=== PATIENT | female | born 1985 | race Caucasian/White ===

== ENCOUNTER 2017-08-17 14:02 | Emergency (ER) | payer MEDICAID ==
[~2017-08-17] VITALS: Ht 165.1 cm; Wt 87.3 kg
[~2017-08-17 14:02] MED LIST: CEPH-571 PO; CLIN150C8 PO; CLINDAMYCIN PO; DIPH25CA83 PO; HYDR-3965 PO; HYDR-569 PO; MUPI1OIN8 BOTHNARES; MUPI22OI TP
[2017-08-17 14:21] VITALS: BP 124/75
[2017-08-17] MEDS ORDERED: CLIN300C70 PO (14:35)
[2017-08-17] MEDS ORDERED: IBUP-1986 PO (14:35)
[2017-08-17] MEDS ORDERED: ANBESOL TP (14:35)
== END 2017-08-17 14:44 | disposition home or self-care (01) ==
LOC: ER 14:03
DX: K02.9 Dental caries, unspecified (principal); G89.29 Other chronic pain; F17.200 Nicotine dependence, unspecified, uncomplicated; Z86.14 Personal history of Methicillin resistant Staphylococcus aureus infection; Z88.0 Allergy status to penicillin; Z88.5 Allergy status to narcotic agent; Z79.899 Other long term (current) drug therapy
CPT/HCPCS: 99283

== ENCOUNTER 2018-06-10 12:18 | Emergency (ER) | payer MEDICAID ==
[~2018-06-10] VITALS: Ht 165.1 cm; Wt 94.0 kg
[~2018-06-10 12:18] MED LIST changes: +HYDR-4383 PO; -HYDR-569 PO; +IBUP-1986 PO
--- NOTE | 2018-06-10 12:44 | NUR ---
RIGHT FOREHEAD ABSCESS NO DRAINAGE NOTED
[2018-06-10] MEDS ORDERED: LORazepam 2 mg/ml vial IM ONE (12:45)
[2018-06-10] MEDS ORDERED: LIDOcaine 1% w/epiNEPHrine 1:200,000 30ml vial IM ONE (12:45)
[2018-06-10] MEDS ORDERED: SULF1TAB49 PO (12:54)
[2018-06-10 13:56] VITALS: BP 132/90
[2018-06-11] MEDS ORDERED: CLIN150C2 PO (17:35)
[2018-06-11] MEDS ORDERED: DIPH25CA83 PO (17:35)
[2018-06-11] MEDS ORDERED: IBUP-1984 PO (17:36)
== END 2018-06-10 13:57 | disposition home or self-care (01) ==
LOC: ER 12:19
DX: L72.3 Sebaceous cyst (principal); G89.29 Other chronic pain; Z86.14 Personal history of Methicillin resistant Staphylococcus aureus infection; Z88.0 Allergy status to penicillin; Z88.5 Allergy status to narcotic agent; Z79.899 Other long term (current) drug therapy
CPT/HCPCS: 10060; 87070; 96372; 99283; J2060; J3490; 87077; 87186

== ENCOUNTER 2018-07-01 20:54 | Emergency (ER) | payer MEDICAID ==
[~2018-07-01] VITALS: Ht 165.1 cm; Wt 90.9 kg
--- NOTE | 2018-07-01 21:09 | NUR ---
dr. egan was notified about patient's SVT status. awaiting orders
[2018-07-01 21:15] LABS: BASOPHILS # (AUTO) 0.1 X10'3 (0-0.2); BASOPHILS % (AUTO) 1.4 % (0-1); EOSINOPHILS # (AUTO) 0.3 X10'3 (0-0.9); EOSINOPHILS % (AUTO) 2.6 % (0-6); HEMATOCRIT 42.7 % (35.0-45.0); HEMOGLOBIN 14.4 g/dl (12.0-16.0); LYMPHOCYTES % (AUTO) 38.4 % (21-51); MEAN CORPUSCULAR HEMOGLOBIN 29.8 PG (27.0-31.0); MEAN CORPUSCULAR HGB CONC 33.7 g/dL (33.0-36.5); MEAN CORPUSCULAR VOLUME 88.4 FL (78-98); MONOCYTES # (AUTO) 1.1 X10'3 (0-0.9); MONOCYTES % (AUTO) 10.3 % (2-12); NEUTROPHILS # (AUTO) 4.9 X10'3 (1.8-7.7); NEUTROPHILS % (AUTO) 47.3 % (42-75); PLATELET COUNT 295 X10'3 (140-440); RED BLOOD COUNT 4.83 X10'6 (4.20-5.60); RED CELL DISTRIBUTION WIDTH 12.9 % (11.5-14.5); WHITE BLOOD COUNT 10.4 X10'3 (4.5-11.0)
[2018-07-01] MEDS ORDERED: adenosine 3mg/ml 2ml vial IV ONE (21:20)
[2018-07-01 21:29] LABS: ANION GAP 11 (8-16); CHLORIDE 108 MMOL/L (99-107); GLUCOSE 105 MG/DL (70-104); POTASSIUM 3.9 MMOL/L (3.5-5.1); SODIUM 141 MMOL/L (135-145); TOTAL CARBON DIOXIDE 22.4 MMOL/L (24-32)
[2018-07-01 21:30] LABS: ALANINE AMINOTRANSFERASE 34 U/L (12-78); ALBUMIN 3.2 G/DL (3.4-5.0); ALBUMIN/GLOBULIN RATIO 0.8 (1.1-1.5); ALKALINE PHOSPHATASE 121 IU/L (46-116); ASPARTATE AMINO TRANSFERASE 23 U/L (10-37); BILIRUBIN,TOTAL 0.1 MG/DL (0.1-1.0); BLOOD UREA NITROGEN 11 MG/DL (7-18); BUN/CREATININE RATIO 15.5 (6.6-38.0); CALCIUM 8.7 MG/DL (8.5-10.1); CREATININE 0.71 MG/DL (0.40-0.90); TOTAL PROTEIN 7.3 G/DL (6.4-8.2); eGFR > 90 ML/MIN
--- NOTE | 2018-07-01 21:35 | NUR ---
12mg adenosine pushed and patient converted to sinus tachycardia without incident. EKG performed immediately after.
[2018-07-01 21:37] LABS: PARTIAL THROMBOPLASTIN TIME 26 SECONDS (22-32)
[2018-07-01 22:00] VITALS: BP 147/70
== END 2018-07-01 22:01 | disposition home or self-care (01) ==
LOC: ER 20:55
DX: I47.1 Supraventricular tachycardia (principal); I49.9 Cardiac arrhythmia, unspecified; G89.29 Other chronic pain; Z86.14 Personal history of Methicillin resistant Staphylococcus aureus infection; Z98.890 Other specified postprocedural states; Z88.0 Allergy status to penicillin; Z88.5 Allergy status to narcotic agent; Z79.899 Other long term (current) drug therapy
CPT/HCPCS: 36415; 71045; 80053; 85025; 85610; 85730; 93005; 99285; J0153

== ENCOUNTER 2018-08-27 11:03 | Emergency (ER) | payer MEDICAID ==
[~2018-08-27] VITALS: Ht 165.1 cm; Wt 96.5 kg
--- NOTE | 2018-08-27 12:01 | NUR ---
dr. dover at bedside.
[2018-08-27 12:05] VITALS: BP 125/76
[2018-08-27] MEDS ORDERED: cephalexin 250mg capsule PO ONE (12:10)
[2018-08-27] MEDS ORDERED: SULF1TAB49 PO (12:10)
[2018-08-27] MEDS ORDERED: ondansetron 4mg rapidly disintigrating tab PO ONE (12:10)
[2018-08-27] MEDS ORDERED: CEPH250T PO (12:10)
[2018-08-27] MEDS ORDERED: sulfamethoxazole/trimethoprim DS (800/160mg) tablet PO ONE (12:10)
== END 2018-08-27 12:32 | disposition home or self-care (01) ==
LOC: ER 11:04
DX: L02.01 Cutaneous abscess of face (principal); G89.29 Other chronic pain; Z86.14 Personal history of Methicillin resistant Staphylococcus aureus infection; Z88.0 Allergy status to penicillin; Z88.5 Allergy status to narcotic agent; Z79.899 Other long term (current) drug therapy
CPT/HCPCS: 99284; J2405

== ENCOUNTER 2018-11-12 21:24 | Emergency (ER) | payer MEDICAID ==
[~2018-11-12] VITALS: Ht 165.1 cm; Wt 95.0 kg
[2018-11-12 22:06] LABS: BASOPHILS # (AUTO) 0.1 X10'3 (0-0.2); BASOPHILS % (AUTO) 1.1 % (0-1); EOSINOPHILS # (AUTO) 0.2 X10'3 (0-0.9); EOSINOPHILS % (AUTO) 3.1 % (0-6); HEMOGLOBIN 12.9 g/dl (12.0-16.0); LYMPHOCYTES # (AUTO) 2.6 X10'3 (1.1-4.8); MEAN CORPUSCULAR HEMOGLOBIN 29.6 PG (27.0-31.0); MEAN CORPUSCULAR HGB CONC 33.9 g/dL (33.0-36.5); MEAN CORPUSCULAR VOLUME 87.3 FL (78-98); MEAN PLATELET VOLUME 7.9 FL (7.4-10.4); MONOCYTES # (AUTO) 0.9 X10'3 (0-0.9); NEUTROPHILS # (AUTO) 3.9 X10'3 (1.8-7.7); NEUTROPHILS % (AUTO) 50.8 % (42-75); PLATELET COUNT 284 X10'3 (140-440); RED BLOOD COUNT 4.35 X10'6 (4.20-5.60); RED CELL DISTRIBUTION WIDTH 12.2 % (11.5-14.5); WHITE BLOOD COUNT 7.8 X10'3 (4.5-11.0)
[2018-11-12 22:13] LABS: PARTIAL THROMBOPLASTIN TIME 29 SECONDS (22-32)
[2018-11-12 22:16] LABS: ALANINE AMINOTRANSFERASE 26 U/L (12-78); ALBUMIN 2.9 G/DL (3.4-5.0); ALBUMIN/GLOBULIN RATIO 0.8 (1.1-1.5); ALKALINE PHOSPHATASE 90 IU/L (46-116); ANION GAP 7 (8-16); ASPARTATE AMINO TRANSFERASE 20 U/L (10-37); BILIRUBIN,TOTAL 0.3 MG/DL (0.1-1.0); BLOOD UREA NITROGEN 12 MG/DL (7-18); CALCIUM 8.1 MG/DL (8.5-10.1); CHLORIDE 110 MMOL/L (99-107); CREATININE 0.92 MG/DL (0.40-0.90); GLUCOSE 100 MG/DL (70-104); POTASSIUM 3.8 MMOL/L (3.5-5.1); SODIUM 143 MMOL/L (135-145); TOTAL CARBON DIOXIDE 25.6 MMOL/L (24-32); TOTAL PROTEIN 6.6 G/DL (6.4-8.2); eGFR 70 ML/MIN
[2018-11-12 23:17] VITALS: BP 127/80
== END 2018-11-12 23:15 | disposition home or self-care (01) ==
LOC: ER 21:24
DX: I47.1 Supraventricular tachycardia (principal); E86.0 Dehydration; G89.29 Other chronic pain; Z86.14 Personal history of Methicillin resistant Staphylococcus aureus infection; Z98.890 Other specified postprocedural states; Z88.0 Allergy status to penicillin; Z88.5 Allergy status to narcotic agent; Z79.2 Long term (current) use of antibiotics; Z79.899 Other long term (current) drug therapy
CPT/HCPCS: 36415; 71045; 80053; 84484; 85025; 85610; 85730; 93005; 99284

== ENCOUNTER 2019-05-06 14:39 | Emergency (ER) | payer MEDICAID ==
[~2019-05-06] VITALS: Ht 165.1 cm; Wt 93.5 kg
[2019-05-06] MEDS ORDERED: CLIN-97 PO (15:29)
[2019-05-06] MEDS ORDERED: ibuprofen tablet 400 MG TABLET PO ONE (15:30)
[2019-05-06 16:28] VITALS: BP 134/64
== END 2019-05-06 16:19 | disposition home or self-care (01) ==
LOC: ER 14:39
DX: K05.10 Chronic gingivitis, plaque induced (principal); G89.29 Other chronic pain; Z86.14 Personal history of Methicillin resistant Staphylococcus aureus infection; Z90.49 Acquired absence of other specified parts of digestive tract; Z98.890 Other specified postprocedural states; Z88.0 Allergy status to penicillin; Z88.5 Allergy status to narcotic agent; Z79.899 Other long term (current) drug therapy
CPT/HCPCS: 99283

== ENCOUNTER 2019-06-26 18:55 | Emergency (ER) | payer MEDICAID ==
[~2019-06-26] VITALS: Ht 165.1 cm; Wt 91.0 kg
[~2019-06-26 18:55] MED LIST changes: +CLIN-97 PO
[2019-06-26] MEDS ORDERED: ALBU18HF2 INH (19:11)
[2019-06-26 19:27] LABS: BASOPHILS # (AUTO) 0.1 X10'3 (0-0.2); BASOPHILS % (AUTO) 0.7 % (0-1); EOSINOPHILS # (AUTO) 0.2 X10'3 (0-0.9); EOSINOPHILS % (AUTO) 2.3 % (0-6); HEMATOCRIT 40.2 % (35.0-45.0); HEMOGLOBIN 13.4 g/dl (12.0-16.0); LYMPHOCYTES # (AUTO) 2.7 X10'3 (1.1-4.8); LYMPHOCYTES % (AUTO) 37.5 % (21-51); MEAN CORPUSCULAR HEMOGLOBIN 28.9 PG (27.0-31.0); MEAN CORPUSCULAR HGB CONC 33.4 g/dL (33.0-36.5); MEAN CORPUSCULAR VOLUME 86.6 FL (78-98); MONOCYTES # (AUTO) 0.6 X10'3 (0-0.9); NEUTROPHILS # (AUTO) 3.6 X10'3 (1.8-7.7); NEUTROPHILS % (AUTO) 50.5 % (42-75); PLATELET COUNT 282 X10'3 (140-440); RED BLOOD COUNT 4.64 X10'6 (4.20-5.60); RED CELL DISTRIBUTION WIDTH 12.6 % (11.5-14.5); WHITE BLOOD COUNT 7.2 X10'3 (4.5-11.0)
[2019-06-26 19:34] LABS: ALANINE AMINOTRANSFERASE 24 U/L (12-78); ALBUMIN 3.2 G/DL (3.4-5.0); ALBUMIN/GLOBULIN RATIO 0.8 (1.1-1.5); ALKALINE PHOSPHATASE 96 IU/L (46-116); ANION GAP 7 (8-16); ASPARTATE AMINO TRANSFERASE 23 U/L (10-37); BILIRUBIN,TOTAL 0.2 MG/DL (0.1-1.0); BLOOD UREA NITROGEN 16 MG/DL (7-18); BUN/CREATININE RATIO 18.6 (6.6-38.0); CALCIUM 8.8 MG/DL (8.5-10.1); CHLORIDE 110 MMOL/L (99-107); CREATININE 0.86 MG/DL (0.40-0.90); GLUCOSE 89 MG/DL (70-104); POTASSIUM 4.1 MMOL/L (3.5-5.1); SODIUM 143 MMOL/L (135-145); TOTAL CARBON DIOXIDE 25.7 MMOL/L (24-32); TOTAL PROTEIN 7.3 G/DL (6.4-8.2); eGFR 76 ML/MIN
--- NOTE | 2019-06-26 19:34 | NUR ---
no acute distress noted. pt appears to be taking selfies with her cell phone while laying on the gurney.
[2019-06-26 19:37] LABS: MAGNESIUM 2.1 MG/DL (1.5-2.4); TROPONIN I < 0.04 NG/ML (0.0-0.05)
[2019-06-26 20:08] VITALS: BP 123/79
== END 2019-06-26 20:10 | disposition home or self-care (01) ==
LOC: ER 18:56
DX: I47.1 Supraventricular tachycardia (principal); R00.2 Palpitations; G89.29 Other chronic pain; F17.200 Nicotine dependence, unspecified, uncomplicated; Z86.14 Personal history of Methicillin resistant Staphylococcus aureus infection; Z98.890 Other specified postprocedural states; Z72.89 Other problems related to lifestyle; Z88.5 Allergy status to narcotic agent; Z88.0 Allergy status to penicillin; Z79.899 Other long term (current) drug therapy
CPT/HCPCS: 36415; 71045; 80053; 83735; 84484; 85025; 93005; 99285

== ENCOUNTER 2019-08-31 11:01 | Emergency (ER) | payer MEDICAID ==
[~2019-08-31] VITALS: Ht 167.6 cm; Wt 95.0 kg
[~2019-08-31 11:01] MED LIST changes: +ALBU18HF2 INH; -CEPH-571 PO; -CLIN-97 PO; -CLIN150C8 PO; -CLINDAMYCIN PO; -HYDR-3965 PO; -HYDR-4383 PO; -MUPI1OIN8 BOTHNARES; -MUPI22OI TP
[2019-08-31 11:03] VITALS: BP 137/85
[2019-08-31] MEDS ORDERED: CLIN-97 PO (11:18)
[2019-08-31] MEDS ORDERED: SULF1TAB49 PO (22:50)
[2019-09-01] MEDS ORDERED: DILT-35 PO (13:19)
[2019-09-01] MEDS ORDERED: SULF1TAB49 PO (13:19)
== END 2019-08-31 11:43 | disposition home or self-care (01) ==
LOC: ER 11:02
DX: L03.211 Cellulitis of face (principal); M79.89 Other specified soft tissue disorders; G89.29 Other chronic pain; Z86.14 Personal history of Methicillin resistant Staphylococcus aureus infection; Z98.890 Other specified postprocedural states; Z72.89 Other problems related to lifestyle; Z88.5 Allergy status to narcotic agent; Z88.0 Allergy status to penicillin; Z79.2 Long term (current) use of antibiotics; Z79.899 Other long term (current) drug therapy
CPT/HCPCS: 99283

== ENCOUNTER 2019-08-31 21:31 | Emergency (ER) | payer MEDICAID ==
[~2019-08-31] VITALS: Ht 165.1 cm; Wt 95.0 kg
[~2019-08-31 21:31] MED LIST changes: +CLIN-97 PO
[2019-08-31] MEDS ORDERED: vancomycin/NS 1 GM ADD-VANTAGE 250 ML IV ONE (21:50)
[2019-08-31] MEDS ORDERED: CefTRIAXone inj 2,000 MG in normal saline 100ml IV soln 100 ML IV ONE (21:50)
[2019-08-31] MEDS ORDERED: normal saline 1000ML IV soln IV ONE (21:50)
[2019-08-31] MEDS ORDERED: CefTRIAXone 2gm/D5W 50ml 50 ML IV ONE (21:50)
--- NOTE | 2019-08-31 22:01 | NUR ---
pt to ct via wheelchair
[2019-08-31 22:29] LABS: BASOPHILS # (AUTO) 0.1 X10'3 (0-0.2); BASOPHILS % (AUTO) 0.3 % (0-1); EOSINOPHILS # (AUTO) 0.1 X10'3 (0-0.9); EOSINOPHILS % (AUTO) 0.7 % (0-6); HEMATOCRIT 37.6 % (35.0-45.0); HEMOGLOBIN 12.8 g/dl (12.0-16.0); LYMPHOCYTES # (AUTO) 1.2 X10'3 (1.1-4.8); LYMPHOCYTES % (AUTO) 8.1 % (21-51); MEAN CORPUSCULAR HEMOGLOBIN 30.3 PG (27.0-31.0); MEAN CORPUSCULAR HGB CONC 34.2 g/dL (33.0-36.5); MEAN CORPUSCULAR VOLUME 88.7 FL (78-98); MEAN PLATELET VOLUME 8.1 FL (7.4-10.4); MONOCYTES # (AUTO) 1.3 X10'3 (0-0.9); MONOCYTES % (AUTO) 8.9 % (2-12); NEUTROPHILS # (AUTO) 12.2 X10'3 (1.8-7.7); PLATELET COUNT 298 X10'3 (140-440); RED BLOOD COUNT 4.24 X10'6 (4.20-5.60); RED CELL DISTRIBUTION WIDTH 13.1 % (11.5-14.5); WHITE BLOOD COUNT 14.9 X10'3 (4.5-11.0)
[2019-08-31] MEDS ORDERED: acetaminophen 325mg tablet PO STA (22:35)
--- NOTE | 2019-08-31 22:40 | NUR ---
encouraged pt to void pt stated she would try after fluids
[2019-08-31 22:43] LABS: ALANINE AMINOTRANSFERASE 21 U/L (12-78); ALBUMIN 3.2 G/DL (3.4-5.0); ALBUMIN/GLOBULIN RATIO 0.7 (1.1-1.5); ALKALINE PHOSPHATASE 109 IU/L (46-116); ANION GAP 9 (8-16); ASPARTATE AMINO TRANSFERASE 18 U/L (10-37); BILIRUBIN,TOTAL 0.3 MG/DL (0.1-1.0); BLOOD UREA NITROGEN 9 MG/DL (7-18); BUN/CREATININE RATIO 10.1 (6.6-38.0); CALCIUM 8.3 MG/DL (8.5-10.1); CHLORIDE 103 MMOL/L (99-107); CREATININE 0.89 MG/DL (0.40-0.90); ETHANOL < 0.010 GM/DL (0.0-0.010); GLUCOSE 103 MG/DL (70-104); POTASSIUM 4.1 MMOL/L (3.5-5.1); SODIUM 137 MMOL/L (135-145); TOTAL CARBON DIOXIDE 25.5 MMOL/L (24-32); TOTAL PROTEIN 7.6 G/DL (6.4-8.2); eGFR 73 ML/MIN
[2019-08-31] MEDS ORDERED: SULF1TAB49 PO (22:50)
[2019-09-01 00:41] VITALS: BP 131/80
[2019-09-01] MEDS ORDERED: DILT-35 PO (13:19)
[2019-09-01] MEDS ORDERED: SULF1TAB49 PO (13:19)
== END 2019-09-01 00:40 | disposition home or self-care (01) ==
LOC: ER 21:32
DX: L03.211 Cellulitis of face (principal); R11.10 Vomiting, unspecified; G89.29 Other chronic pain; Z86.14 Personal history of Methicillin resistant Staphylococcus aureus infection; Z72.89 Other problems related to lifestyle; Z88.0 Allergy status to penicillin; Z88.5 Allergy status to narcotic agent; Z79.899 Other long term (current) drug therapy
CPT/HCPCS: 36415; 70486; 80053; 80320; 83605; 84145; 85025; 87040; 96365; 96366; 96368; 99284; J0696; J3370; J7030

== ENCOUNTER 2019-09-01 10:13 | Emergency (ER) | payer MEDICAID ==
[~2019-09-01] VITALS: Ht 165.1 cm; Wt 95.0 kg
[~2019-09-01 10:13] MED LIST changes: +SULF1TAB49 PO
[2019-09-01] MEDS ORDERED: cefepime 2gm inj IV STA (10:30)
[2019-09-01] MEDS ORDERED: CEFEPIME 2 GM in NS 100ml IV.SOLN 100 ML IV ONE (10:40)
[2019-09-01] MEDS ORDERED: linezolid 600mg/300ml PREMIX 300 ML IV ONE ×2 (10:45→20:00)
[2019-09-01] MEDS ORDERED: LORazepam 2 mg/ml vial IM ONE (11:10)
[2019-09-01 11:23] LABS: BASOPHILS # (AUTO) 0.1 X10'3 (0-0.2); BASOPHILS % (AUTO) 0.4 % (0-1); EOSINOPHILS # (AUTO) 0.2 X10'3 (0-0.9); EOSINOPHILS % (AUTO) 1.4 % (0-6); HEMATOCRIT 34.7 % (35.0-45.0); HEMOGLOBIN 11.5 g/dl (12.0-16.0); LYMPHOCYTES # (AUTO) 1.6 X10'3 (1.1-4.8); LYMPHOCYTES % (AUTO) 10.4 % (21-51); MEAN CORPUSCULAR HEMOGLOBIN 29.3 PG (27.0-31.0); MEAN CORPUSCULAR HGB CONC 33.1 g/dL (33.0-36.5); MEAN CORPUSCULAR VOLUME 88.5 FL (78-98); MONOCYTES # (AUTO) 1.3 X10'3 (0-0.9); MONOCYTES % (AUTO) 8.7 % (2-12); NEUTROPHILS # (AUTO) 12.2 X10'3 (1.8-7.7); NEUTROPHILS % (AUTO) 79.1 % (42-75); PLATELET COUNT 270 X10'3 (140-440); RED BLOOD COUNT 3.92 X10'6 (4.20-5.60); RED CELL DISTRIBUTION WIDTH 13.3 % (11.5-14.5); WHITE BLOOD COUNT 15.4 X10'3 (4.5-11.0)
[2019-09-01 11:30] LABS: ALANINE AMINOTRANSFERASE 20 U/L (12-78); ALBUMIN 2.6 G/DL (3.4-5.0); ALBUMIN/GLOBULIN RATIO 0.7 (1.1-1.5); ALKALINE PHOSPHATASE 92 IU/L (46-116); ANION GAP 8 (8-16); ASPARTATE AMINO TRANSFERASE 20 U/L (10-37); BILIRUBIN,TOTAL 0.3 MG/DL (0.1-1.0); BLOOD UREA NITROGEN 7 MG/DL (7-18); BUN/CREATININE RATIO 11.5 (6.6-38.0); CALCIUM 7.7 MG/DL (8.5-10.1); CHLORIDE 108 MMOL/L (99-107); CREATININE 0.61 MG/DL (0.40-0.90); GLUCOSE 97 MG/DL (70-104); MAGNESIUM 2.1 MG/DL (1.5-2.4); POTASSIUM 3.9 MMOL/L (3.5-5.1); SODIUM 140 MMOL/L (135-145); TOTAL PROTEIN 6.5 G/DL (6.4-8.2); eGFR > 90 ML/MIN
[2019-09-01] MEDS ORDERED: LORazepam 2 mg/ml vial IV ONE (11:30)
[2019-09-01] MEDS ORDERED: morphine 4 MG/ML inj SYRINge IV PRN (12:00)
[2019-09-01] MEDS ORDERED: ondansetron/PF 4mg/2ml inj IV ONE (12:00)
[2019-09-01] MEDS ORDERED: iohexol 300mg/ml 100ml inj. ONE (12:05)
--- NOTE | 2019-09-01 12:46 | NUR ---
Pt reports urine cup given for urine was accidently dropped in toilet, pt reports she should be able to urinate in a little while again.
[2019-09-01 13:12] VITALS: BP 130/84
[2019-09-01] MEDS ORDERED: SULF1TAB49 PO (13:19)
[2019-09-01] MEDS ORDERED: DILT-35 PO (13:19)
[2019-09-01] MEDS ORDERED: diltiazem CD 120mg capsule (once-daily) PO ONE (14:40)
[2019-09-01] MEDS ORDERED: LORazepam 2 mg/ml vial IV PRN (14:45)
[2019-09-01] MEDS ORDERED: HYDROcodone/acetaminophen 10/325mg tab PO PRN (14:45)
[2019-09-01] MEDS ORDERED: acetaminophen 650mg rectal suppository RC PRN (14:45)
[2019-09-01] MEDS ORDERED: magnesium Cl slow-release 64mg tablet PO PRN (14:45)
[2019-09-01] MEDS ORDERED: magnesium 2GM in 50ml NS 50 ML IV PRN (14:45)
[2019-09-01] MEDS ORDERED: magnesium hydroxide 30ml (MOM) UD suspension PO PRN (14:45)
[2019-09-01] MEDS ORDERED: potassium Cl 20 mEq SR tablet PO PRN ×2 (14:45)
[2019-09-01] MEDS ORDERED: mag hydrox/Alum hydrox/simeth 30ml oral suspension PO PRN (14:45)
[2019-09-01] MEDS ORDERED: metoclopramide 5 mg/ml inj IV PRN (14:45)
[2019-09-01] MEDS ORDERED: HYDROcodone/acetaminophen 5mg/325mg tablet PO PRN (14:45)
[2019-09-01] MEDS ORDERED: ondansetron/PF 4mg/2ml inj IV PRN (14:45)
[2019-09-01] MEDS ORDERED: magnesium 4gm in 100ml NS 100 ML IV PRN (14:45)
[2019-09-01] MEDS ORDERED: normal saline 1000ml 1,000 ML IV SCH (14:45)
[2019-09-01] MEDS ORDERED: potassium CL 10mEq/100ml bag 100 ML IV PRN ×2 (14:45)
[2019-09-01] MEDS ORDERED: acetaminophen 325mg tablet PO PRN ×2 (14:45)
[2019-09-01] MEDS ORDERED: nicotine 21mg patch - 24 hr TD ONE (14:50)
[2019-09-01] MEDS ORDERED: VANCOmycin 1250MG/NS 250ml Bag 250 ML IV SCH (16:00)
[2019-09-01] MEDS ORDERED: K and/or MAG REPLACEMENT MC SCH (20:00)
[2019-09-01] MEDS ORDERED: cefepime 2g/NS 100ml ADVANTAGE 100 ML IV SCH (20:00)
[2019-09-02] MEDS ORDERED: diltiazem CD 120mg capsule (once-daily) PO SCH (08:00)
[2019-09-02] MEDS ORDERED: enoxaparin 40mg/0.4ml syringe SUBCUT SCH (08:00)
[2019-09-02] MEDS ORDERED: VANCOMYCIN LEVEL IV ONE (15:30)
== END 2019-09-01 16:26 | disposition left against medical advice (07) ==
LOC: ER 10:13 → ED HOLD 14:45 → UNDOADMIN 14:45 → CMPBEDREQ 20:47
DX: R22.0 Localized swelling, mass and lump, head (principal); R51 Headache; R50.9 Fever, unspecified; G89.29 Other chronic pain; Z98.890 Other specified postprocedural states; Z88.0 Allergy status to penicillin; Z88.5 Allergy status to narcotic agent; Z79.2 Long term (current) use of antibiotics; Z79.899 Other long term (current) drug therapy
CPT/HCPCS: 36415; 70486; 71045; 80053; 83605; 83735; 84145; 85025; 87040; 96365; 96366; 96367; 96375; 99285; J0692; J2020; J2060; Q9967

== ENCOUNTER 2019-11-22 14:45 | Emergency (ER) | payer MEDICAID ==
[~2019-11-22] VITALS: Ht 165.1 cm; Wt 94.0 kg
[~2019-11-22 14:45] MED LIST changes: -CLIN-97 PO; +DILT-35 PO; -DIPH25CA83 PO; -IBUP-1986 PO
[2019-11-22 15:03] VITALS: BP 130/82
[2019-11-22] MEDS ORDERED: SULF1TAB49 PO (16:00)
[2019-11-22] MEDS ORDERED: CEPH-572 PO (16:00)
== END 2019-11-22 16:18 | disposition home or self-care (01) ==
LOC: ER 14:46
DX: L02.01 Cutaneous abscess of face (principal); G89.29 Other chronic pain; Z86.14 Personal history of Methicillin resistant Staphylococcus aureus infection; Z98.890 Other specified postprocedural states; Z72.89 Other problems related to lifestyle; Z88.0 Allergy status to penicillin; Z88.5 Allergy status to narcotic agent; Z79.2 Long term (current) use of antibiotics; Z79.899 Other long term (current) drug therapy
CPT/HCPCS: 99283

== ENCOUNTER 2020-02-17 19:06 | Emergency (ER) | payer MEDICAID ==
[~2020-02-17] VITALS: Ht 167.6 cm; Wt 95.0 kg
[2020-02-17 19:10] VITALS: BP 130/88
--- NOTE | 2020-02-17 19:18 | NUR ---
DR. BETANCOURT IN TRIAGE ASSESSING PATIOENT PATIENT STATES " I FEEL BETTER AND IF I CAN GO." I WAS ABLE TO GET DR. BETANCOURT TO SEE PATIENT IN TRIAGE AND WRITE DC, PAPERS
--- NOTE | 2020-02-17 19:20 | NUR ---
PATIENT DENIES CP WITH C/C RESOLVED DR. BETANCOURT DISCHARGING FROM TRIAGE NO S/S OF ACUTE STRESS OBSERVED AT THIS TIME
== END 2020-02-17 19:31 | disposition home or self-care (01) ==
LOC: ER 19:07
DX: R00.2 Palpitations (principal); G89.29 Other chronic pain; Z86.14 Personal history of Methicillin resistant Staphylococcus aureus infection; Z98.891 History of uterine scar from previous surgery; Z72.89 Other problems related to lifestyle; Z88.0 Allergy status to penicillin; Z88.8 Allergy status to other drugs, medicaments and biological substances; Z79.899 Other long term (current) drug therapy
CPT/HCPCS: 93005; 99283

== ENCOUNTER 2020-07-13 23:13 | Emergency (ER) | payer MEDICAID ==
[~2020-07-13] VITALS: Ht 165.1 cm; Wt 91.5 kg
[2020-07-14] MEDS ORDERED: DILT120C20 PO (01:01)
[2020-07-14] MEDS ORDERED: ibuprofen 200mg tablet PO ONE (01:05)
[2020-07-14] MEDS ORDERED: diltiazem SR 60mg capsule (twice daily) PO SCH (01:05)
[2020-07-14] MEDS ORDERED: diltiazem SR 60mg capsule (twice daily) PO ONE (01:05)
[2020-07-14 01:52] VITALS: BP 126/92
== END 2020-07-14 02:24 | disposition home or self-care (01) ==
LOC: ER 07-14 02:15
DX: R00.0 Tachycardia, unspecified (principal); R07.89 Other chest pain; F41.9 Anxiety disorder, unspecified; G89.29 Other chronic pain; F17.200 Nicotine dependence, unspecified, uncomplicated; Z86.14 Personal history of Methicillin resistant Staphylococcus aureus infection; Z72.89 Other problems related to lifestyle; Z98.890 Other specified postprocedural states; Z88.0 Allergy status to penicillin; Z88.5 Allergy status to narcotic agent; Z79.2 Long term (current) use of antibiotics; Z79.899 Other long term (current) drug therapy
CPT/HCPCS: 93005; 99283

== ENCOUNTER 2020-07-30 15:59 | Emergency (ER) | payer MEDICAID ==
[~2020-07-30] VITALS: Ht 165.1 cm; Wt 86.4 kg
[~2020-07-30 15:59] MED LIST changes: +DILT120C20 PO
[2020-07-30 16:38] LABS: EOSINOPHILS # (AUTO) 0.3 X10'3 (0-0.9); HEMOGLOBIN 14.2 g/dl (12.0-16.0); MEAN PLATELET VOLUME 8.1 FL (7.4-10.4); MONOCYTES # (AUTO) 0.8 X10'3 (0-0.9); NEUTROPHILS # (AUTO) 4.7 X10'3 (1.8-7.7)
[2020-07-30 16:40] LABS: BASOPHILS # (AUTO) 0.1 X10'3 (0-0.2); BASOPHILS % (AUTO) 1.2 % (0-1); EOSINOPHILS % (AUTO) 3.9 % (0-6); HEMATOCRIT 42.2 % (35.0-45.0); LYMPHOCYTES # (AUTO) 2.7 X10'3 (1.1-4.8); LYMPHOCYTES % (AUTO) 30.7 % (21-51); MEAN CORPUSCULAR HEMOGLOBIN 29.4 PG (27.0-31.0); MEAN CORPUSCULAR HGB CONC 33.8 g/dL (33.0-36.5); MONOCYTES % (AUTO) 9.7 % (2-12); NEUTROPHILS % (AUTO) 54.5 % (42-75); PLATELET COUNT 307 X10'3 (140-440); RED BLOOD COUNT 4.84 X10'6 (4.20-5.60); RED CELL DISTRIBUTION WIDTH 12.7 % (11.5-14.5); WHITE BLOOD COUNT 8.7 X10'3 (4.5-11.0)
[2020-07-30 16:53] LABS: ALANINE AMINOTRANSFERASE 18 U/L (12-78); ALBUMIN/GLOBULIN RATIO 0.7 (1.1-1.5); ALKALINE PHOSPHATASE 109 IU/L (46-116); ANION GAP 10 (8-16); ASPARTATE AMINO TRANSFERASE 20 U/L (10-37); BILIRUBIN,TOTAL 0.2 MG/DL (0.1-1.0); BLOOD UREA NITROGEN 12 MG/DL (7-18); BUN/CREATININE RATIO 15.8 (6.6-38.0); CALCIUM 8.2 MG/DL (8.5-10.1); CHLORIDE 106 MMOL/L (99-107); CREATININE 0.76 MG/DL (0.40-0.90); GLUCOSE 91 MG/DL (70-104); POTASSIUM 3.8 MMOL/L (3.5-5.1); SODIUM 140 MMOL/L (135-145); TOTAL PROTEIN 7.1 G/DL (6.4-8.2); eGFR 87 ML/MIN
[2020-07-30 17:23] VITALS: BP 134/88
== END 2020-07-30 17:28 | disposition home or self-care (01) ==
LOC: ER 15:59
DX: R00.0 Tachycardia, unspecified (principal); G89.29 Other chronic pain; Z86.14 Personal history of Methicillin resistant Staphylococcus aureus infection; Z98.890 Other specified postprocedural states; Z72.89 Other problems related to lifestyle; Z88.5 Allergy status to narcotic agent; Z79.2 Long term (current) use of antibiotics; Z79.899 Other long term (current) drug therapy
CPT/HCPCS: 36415; 71045; 80053; 84443; 84484; 85025; 93005; 99285

== ENCOUNTER 2020-08-07 13:59 | Emergency (ER) | payer MEDICAID ==
[~2020-08-07] VITALS: Ht 165.1 cm; Wt 94.0 kg
[2020-08-07 14:39] LABS: BASOPHILS # (AUTO) 0.1 X10'3 (0-0.2); BASOPHILS % (AUTO) 0.8 % (0-1); EOSINOPHILS # (AUTO) 0.2 X10'3 (0-0.9); EOSINOPHILS % (AUTO) 1.6 % (0-6); HEMATOCRIT 43.2 % (35.0-45.0); HEMOGLOBIN 14.7 g/dl (12.0-16.0); LYMPHOCYTES # (AUTO) 2.6 X10'3 (1.1-4.8); LYMPHOCYTES % (AUTO) 26.4 % (21-51); MEAN CORPUSCULAR HEMOGLOBIN 29.4 PG (27.0-31.0); MEAN CORPUSCULAR VOLUME 86.5 FL (78-98); MEAN PLATELET VOLUME 7.8 FL (7.4-10.4); MONOCYTES # (AUTO) 0.9 X10'3 (0-0.9); NEUTROPHILS # (AUTO) 6.2 X10'3 (1.8-7.7); NEUTROPHILS % (AUTO) 62.2 % (42-75); PLATELET COUNT 316 X10'3 (140-440); RED BLOOD COUNT 4.99 X10'6 (4.20-5.60); RED CELL DISTRIBUTION WIDTH 13.3 % (11.5-14.5)
[2020-08-07 14:55] LABS: ALANINE AMINOTRANSFERASE 27 U/L (12-78); ALBUMIN 3.1 G/DL (3.4-5.0); ALBUMIN/GLOBULIN RATIO 0.7 (1.1-1.5); ALKALINE PHOSPHATASE 110 IU/L (46-116); ANION GAP 8 (8-16); ASPARTATE AMINO TRANSFERASE 22 U/L (10-37); BILIRUBIN,TOTAL 0.4 MG/DL (0.1-1.0); BLOOD UREA NITROGEN 14 MG/DL (7-18); BUN/CREATININE RATIO 16.3 (6.6-38.0); CALCIUM 8.4 MG/DL (8.5-10.1); CHLORIDE 105 MMOL/L (99-107); CREATININE 0.86 MG/DL (0.40-0.90); GLUCOSE 100 MG/DL (70-104); POTASSIUM 4.3 MMOL/L (3.5-5.1); SODIUM 140 MMOL/L (135-145); TOTAL PROTEIN 7.6 G/DL (6.4-8.2); eGFR 75 ML/MIN
[2020-08-07] MEDS ORDERED: DILT-35 PO (15:37)
[2020-08-07 15:39] VITALS: BP 113/82
== END 2020-08-07 16:03 | disposition home or self-care (01) ==
LOC: ER 14:00
DX: R07.89 Other chest pain (principal); R53.1 Weakness; R53.83 Other fatigue; G89.29 Other chronic pain; F17.200 Nicotine dependence, unspecified, uncomplicated; Z86.14 Personal history of Methicillin resistant Staphylococcus aureus infection; Z98.890 Other specified postprocedural states; Z72.89 Other problems related to lifestyle; Z88.5 Allergy status to narcotic agent; Z79.899 Other long term (current) drug therapy
CPT/HCPCS: 36415; 71045; 80053; 83880; 84484; 85025; 93005; 99285

== ENCOUNTER 2020-08-15 12:58 | Emergency (ER) | payer MEDICAID ==
--- NOTE | 2020-08-15 13:32 | NUR ---
pt. is requesting to get off the ambulance gurney and go home. she is showing sinus tachy on the ems monitor. ekg shown to dr. spain. pt. has been asked to stay long enough for to come give her risk and benefits up to and including . then we will have her sign an AMA. pt. converted from stv to sinus tachy and feels better now ,just wants to go home.
--- NOTE | 2020-08-15 13:41 | NUR ---
dr. Burger spoke to pt. gave her risk and benefits up to and including . pt. still wanting to leave. AMA signed by dr. Burger, IV removed by kingsley trevino Addendum: 08/15/[address] Sherrie Lawson.......
== END 2020-08-15 13:49 | disposition left against medical advice (07) ==
LOC: ER 12:58
DX: I49.9 Cardiac arrhythmia, unspecified (principal); R00.2 Palpitations; R07.89 Other chest pain; G89.29 Other chronic pain; F17.200 Nicotine dependence, unspecified, uncomplicated; Z03.89 Encounter for observation for other suspected diseases and conditions ruled out; Z86.14 Personal history of Methicillin resistant Staphylococcus aureus infection; Z98.890 Other specified postprocedural states; Z72.89 Other problems related to lifestyle; Z88.5 Allergy status to narcotic agent; Z79.2 Long term (current) use of antibiotics; Z79.899 Other long term (current) drug therapy
CPT/HCPCS: 93005; 99283

== ENCOUNTER 2021-04-26 08:36 | Outpatient (CLI) | payer MEDICAID | END 2021-04-26 23:59 | disposition home or self-care (01) | LOC: RAD 08:36 | PROVIDERS: ATTEND Physician Assistant | DX: Z87.898 Personal history of other specified conditions (principal) | CPT/HCPCS: 95816 ==

== ENCOUNTER 2021-12-22 13:57 | Emergency (ER) | payer MEDICAID ==
[~2021-12-22] VITALS: Ht 165.1 cm; Wt 88.0 kg
[2021-12-22] MEDS ORDERED: diltiazem 5mg/ml 5ml inj. IV ONE (14:05)
[2021-12-22] MEDS ORDERED: normal saline 1000ML IV soln IVB ONE (14:05)
[2021-12-22 14:17] VITALS: BP 121/82
[2021-12-22 14:41] LABS: BASOPHILS # (AUTO) 0.1 X10'3 (0-0.2); BASOPHILS % (AUTO) 0.9 % (0-1); EOSINOPHILS # (AUTO) 0.5 X10'3 (0-0.9); EOSINOPHILS % (AUTO) 5.4 % (0-6); HEMATOCRIT 39.1 % (35.0-45.0); HEMOGLOBIN 13.5 g/dl (12.0-16.0); LYMPHOCYTES # (AUTO) 2.3 X10'3 (1.1-4.8); LYMPHOCYTES % (AUTO) 25.3 % (21-51); MEAN CORPUSCULAR HGB CONC 34.5 g/dL (33.0-36.5); MEAN CORPUSCULAR VOLUME 86.7 FL (78-98); MEAN PLATELET VOLUME 7.7 FL (7.4-10.4); MONOCYTES # (AUTO) 0.7 X10'3 (0-0.9); MONOCYTES % (AUTO) 7.1 % (2-12); NEUTROPHILS # (AUTO) 5.7 X10'3 (1.8-7.7); NEUTROPHILS % (AUTO) 61.3 % (42-75); PLATELET COUNT 355 X10'3 (140-440); RED BLOOD COUNT 4.51 X10'6 (4.20-5.60); RED CELL DISTRIBUTION WIDTH 12.2 % (11.5-14.5); WHITE BLOOD COUNT 9.3 X10'3 (4.5-11.0)
[2021-12-22 14:46] LABS: ALANINE AMINOTRANSFERASE 21 U/L (12-78); ALBUMIN 3.2 G/DL (3.4-5.0); ALBUMIN/GLOBULIN RATIO 0.7 (1.1-1.5); ALKALINE PHOSPHATASE 102 IU/L (46-116); ANION GAP 7 (8-16); ASPARTATE AMINO TRANSFERASE 24 U/L (10-37); BILIRUBIN,TOTAL 0.4 MG/DL (0.1-1.0); BLOOD UREA NITROGEN 16 MG/DL (7-18); BUN/CREATININE RATIO 20.8 (6.6-38.0); CALCIUM 8.5 MG/DL (8.5-10.1); CHLORIDE 104 MMOL/L (99-107); CREATININE 0.77 MG/DL (0.40-0.90); GLUCOSE 99 MG/DL (70-104); SODIUM 142 MMOL/L (135-145); TOTAL PROTEIN 7.5 G/DL (6.4-8.2); eGFR 84 ML/MIN
[2021-12-22 15:13] LABS: ETHANOL < 0.010 GM/DL (0.0-0.010)
== END 2021-12-22 14:52 | disposition left against medical advice (07) ==
LOC: ER 13:57
DX: R25.1 Tremor, unspecified (principal); R53.83 Other fatigue
CPT/HCPCS: 36415; 71045; 80053; 80320; 83880; 84484; 85025; 93005; 99285

== ENCOUNTER 2022-07-04 17:41 | Emergency (ER) | payer MEDICAID ==
[~2022-07-04] VITALS: Ht 165.1 cm; Wt 88.6 kg
[2022-07-04 19:14] LABS: BASOPHILS # (AUTO) 0.1 X10'3 (0-0.2); EOSINOPHILS # (AUTO) 0.3 X10'3 (0-0.9); EOSINOPHILS % (AUTO) 2.8 % (0-6); HEMATOCRIT 37.8 % (35.0-45.0); LYMPHOCYTES % (AUTO) 31.9 % (21-51); MEAN CORPUSCULAR HEMOGLOBIN 29.1 PG (27.0-31.0); MEAN CORPUSCULAR HGB CONC 34.4 g/dL (33.0-36.5); MEAN CORPUSCULAR VOLUME 84.6 FL (78-98); MONOCYTES # (AUTO) 0.9 X10'3 (0-0.9); NEUTROPHILS # (AUTO) 5.2 X10'3 (1.8-7.7); NEUTROPHILS % (AUTO) 55.3 % (42-75); PLATELET COUNT 366 X10'3 (140-440); RED BLOOD COUNT 4.47 X10'6 (4.20-5.60); RED CELL DISTRIBUTION WIDTH 12.2 % (11.5-14.5); WHITE BLOOD COUNT 9.5 X10'3 (4.5-11.0)
[2022-07-04 19:21] LABS: CLARITY,URINE SLIGHTLY CLOUDY (Clear); COLOR,URINE YELLOW (Yellow); GLUCOSE, URINE NEGATIVE (Neg); KETONES,URINE NEGATIVE (Neg); LEUKOCYTE ESTERASE ,URINE NEGATIVE (Neg); NITRITES, URINE NEGATIVE (Neg); OCCULT BLOOD,URINE SMALL (Neg); PROTEIN,URINE NEGATIVE (Neg); UROBILINOGEN,URINE 0.2 E.U/dL (0.2-1.0)
[2022-07-04 19:26] LABS: UA COLLECTION TYPE CLN CATCH MIDSTREAM
[2022-07-04 19:27] LABS: SQUAMOUS EPITHELIAL CELL,UR MANY /LPF (FEW)
[2022-07-04 19:27] LABS: ALANINE AMINOTRANSFERASE 20 U/L (12-78); ALBUMIN/GLOBULIN RATIO 0.7 (1.1-1.5); ALKALINE PHOSPHATASE 103 IU/L (46-116); ANION GAP 8 (8-16); ASPARTATE AMINO TRANSFERASE 15 U/L (10-37); BILIRUBIN,TOTAL 0.2 MG/DL (0.1-1.0); BLOOD UREA NITROGEN 10 MG/DL (7-18); BUN/CREATININE RATIO 14.1 (10.0-20.0); CALCIUM 8.3 MG/DL (8.5-10.1); CHLORIDE 107 MMOL/L (99-107); CREATININE 0.71 MG/DL (0.40-0.90); GLUCOSE 91 MG/DL (70-104); POTASSIUM 3.9 MMOL/L (3.5-5.1); SODIUM 142 MMOL/L (135-145); TOTAL CARBON DIOXIDE 26.9 MMOL/L (24-32); TOTAL PROTEIN 7.2 G/DL (6.4-8.2); eGFR > 90 ML/MIN
[2022-07-04 19:28] LABS: BACTERIA,URINE 1+ /HPF (Neg)
[2022-07-04 19:29] LABS: RBC,URINE 0-2 /HPF (0-2)
[2022-07-04 19:30] LABS: TRANSITIONAL EPI CELLS,URINE FEW /HPF
[2022-07-04] MEDS ORDERED: PENI500T2 PO (20:42)
[2022-07-04 20:59] VITALS: BP 128/88
== END 2022-07-04 21:01 | disposition home or self-care (01) ==
LOC: ER 17:41
DX: I47.1 Supraventricular tachycardia (principal); F17.200 Nicotine dependence, unspecified, uncomplicated; K02.9 Dental caries, unspecified; F15.10 Other stimulant abuse, uncomplicated; G89.29 Other chronic pain; M54.9 Dorsalgia, unspecified; Z86.14 Personal history of Methicillin resistant Staphylococcus aureus infection; Z88.5 Allergy status to narcotic agent; Z79.899 Other long term (current) drug therapy; Z79.1 Long term (current) use of non-steroidal anti-inflammatories (NSAID); Z79.2 Long term (current) use of antibiotics
CPT/HCPCS: 36415; 71045; 80053; 81001; 83880; 84484; 85025; 93005; 99285

== ENCOUNTER 2022-08-28 15:33 | Emergency (ER) | payer MEDICAID ==
[~2022-08-28] VITALS: Ht 167 cm; Wt 90.0 kg
[2022-08-28 15:39] VITALS: BP 141/98
[2022-08-28] MEDS ORDERED: CEPH-585 PO (15:43)
== END 2022-08-28 16:17 | disposition home or self-care (01) ==
LOC: ER 15:34
DX: L02.01 Cutaneous abscess of face (principal); G89.29 Other chronic pain; F15.90 Other stimulant use, unspecified, uncomplicated; Z56.0 Unemployment, unspecified; Z72.89 Other problems related to lifestyle; Z98.891 History of uterine scar from previous surgery; Z86.14 Personal history of Methicillin resistant Staphylococcus aureus infection; Z88.8 Allergy status to other drugs, medicaments and biological substances; Z79.2 Long term (current) use of antibiotics; Z79.899 Other long term (current) drug therapy
CPT/HCPCS: 99283

== ENCOUNTER 2022-12-23 10:52 | Emergency (ER) | payer MEDICAID ==
[~2022-12-23] VITALS: Ht 167 cm; Wt 86.4 kg
[~2022-12-23 10:52] MED LIST changes: +CEPH-585 PO
[2022-12-23] MEDS ORDERED: normal saline 1000ML IV soln IVB ONE (11:15)
[2022-12-23 11:35] VITALS: BP 131/93; PULSE 101; TEMP 99; O2SAT 96
[2022-12-23 11:39] LABS: BASOPHILS # (AUTO) 0.1 X10'3 (0-0.2); BASOPHILS % (AUTO) 0.8 % (0-1); EOSINOPHILS # (AUTO) 0.2 X10'3 (0-0.9); EOSINOPHILS % (AUTO) 2.1 % (0-6); HEMATOCRIT 40.2 % (35.0-45.0); HEMOGLOBIN 13.6 g/dl (12.0-16.0); LYMPHOCYTES # (AUTO) 2.3 X10'3 (1.1-4.8); LYMPHOCYTES % (AUTO) 30.3 % (21-51); MEAN CORPUSCULAR HEMOGLOBIN 28.8 PG (27.0-31.0); MEAN CORPUSCULAR HGB CONC 33.8 g/dL (33.0-36.5); MEAN CORPUSCULAR VOLUME 85.4 FL (78-98); MEAN PLATELET VOLUME 8.2 FL (7.4-10.4); MONOCYTES # (AUTO) 0.8 X10'3 (0-0.9); MONOCYTES % (AUTO) 10.9 % (2-12); NEUTROPHILS # (AUTO) 4.2 X10'3 (1.8-7.7); NEUTROPHILS % (AUTO) 55.9 % (42-75); PLATELET COUNT 313 X10'3 (140-440); RED BLOOD COUNT 4.71 X10'6 (4.20-5.60); RED CELL DISTRIBUTION WIDTH 13.1 % (11.5-14.5); WHITE BLOOD COUNT 7.6 X10'3 (4.5-11.0)
[2022-12-23 11:50] VITALS: RESP 11
[2022-12-23 11:54] LABS: ALANINE AMINOTRANSFERASE 21 U/L (12-78); ALBUMIN 3.2 G/DL (3.4-5.0); ALBUMIN/GLOBULIN RATIO 0.8 (1.1-1.5); ALKALINE PHOSPHATASE 85 IU/L (46-116); ANION GAP 10 (8-16); ASPARTATE AMINO TRANSFERASE 20 U/L (10-37); BILIRUBIN,TOTAL 0.6 MG/DL (0.1-1.0); BLOOD UREA NITROGEN 12 MG/DL (7-18); CALCIUM 8.9 MG/DL (8.5-10.1); CHLORIDE 105 MMOL/L (99-107); CREATININE 0.86 MG/DL (0.40-0.90); GLUCOSE 93 MG/DL (70-104); POTASSIUM 3.5 MMOL/L (3.5-5.1); SODIUM 138 MMOL/L (135-145); TOTAL CARBON DIOXIDE 23.5 MMOL/L (24-32); TOTAL PROTEIN 7.2 G/DL (6.4-8.2); eCRCL 82 ML/MIN; eGFR 74 ML/MIN
[2022-12-23 11:56] LABS: URINE AMPHETAMINE SCREEN POSITIVE (Neg); URINE BARBITUATE SCREEN NEGATIVE (Neg); URINE BENZODIAZEPINES SCREEN NEGATIVE (Neg); URINE CANNABINOID SCREEN NEGATIVE (Neg); URINE COCAINE SCREEN NEGATIVE (Neg); URINE METHADONE SCREEN NEGATIVE (Neg); URINE OPIATE SCREEN NEGATIVE (Neg); URINE PHENCYCLIDINE SCREEN NEGATIVE (Neg)
[2022-12-23 12:06] LABS: ETHANOL < 10 MG/DL (<10); MAGNESIUM 1.9 MG/DL (1.5-2.4); PRO BRAIN NATRIURETIC PEPTIDE 40 PG/ML (0-125); THYROID STIMULATING HORMONE 1.08 ulU/ml (0.34-4.50)
[2022-12-23] MEDS ORDERED: carVEDilol 3.125mg tablet PO ONE (12:25)
[2022-12-23] MEDS ORDERED: potassium Cl 20 mEq SR tablet PO ONE (12:25)
[2022-12-23] MEDS ORDERED: magnesium oxide 400mg tablet PO ONE (12:25)
== END 2022-12-23 13:21 | disposition home or self-care (01) ==
LOC: ER 10:52
DX: I47.10 Supraventricular tachycardia, unspecified (principal); F15.10 Other stimulant abuse, uncomplicated; G89.29 Other chronic pain; M54.9 Dorsalgia, unspecified; Z56.0 Unemployment, unspecified; Z98.890 Other specified postprocedural states
CPT/HCPCS: 36415; 71045; 80053; 80305; 80320; 83735; 83880; 84443; 84484; 85025; 93005; 96360; 99285; J7030

== ENCOUNTER 2023-02-09 04:12 | Emergency (ER) | payer MEDICAID ==
[~2023-02-09] VITALS: Ht 165.1 cm; Wt 81.8 kg
[2023-02-09 04:34] LABS: BASOPHILS # (AUTO) 0.1 X10'3 (0-0.2); BASOPHILS % (AUTO) 0.5 % (0-1); EOSINOPHILS # (AUTO) 0.3 X10'3 (0-0.9); EOSINOPHILS % (AUTO) 2.5 % (0-6); HEMATOCRIT 37.8 % (35.0-45.0); HEMOGLOBIN 12.7 g/dl (12.0-16.0); LYMPHOCYTES # (AUTO) 2.2 X10'3 (1.1-4.8); LYMPHOCYTES % (AUTO) 19.3 % (21-51); MEAN CORPUSCULAR HEMOGLOBIN 28.6 PG (27.0-31.0); MEAN CORPUSCULAR HGB CONC 33.5 g/dL (33.0-36.5); MEAN CORPUSCULAR VOLUME 85.5 FL (78-98); MEAN PLATELET VOLUME 7.6 FL (7.4-10.4); MONOCYTES # (AUTO) 0.9 X10'3 (0-0.9); MONOCYTES % (AUTO) 7.8 % (2-12); NEUTROPHILS # (AUTO) 7.9 X10'3 (1.8-7.7); NEUTROPHILS % (AUTO) 69.9 % (42-75); PLATELET COUNT 297 X10'3 (140-440); RED BLOOD COUNT 4.42 X10'6 (4.20-5.60); RED CELL DISTRIBUTION WIDTH 12.3 % (11.5-14.5); WHITE BLOOD COUNT 11.3 X10'3 (4.5-11.0)
[2023-02-09 04:42] VITALS: BP 131/88; PULSE 90; RESP 19; TEMP 98.5; O2SAT 99
[2023-02-09 04:54] LABS: ALANINE AMINOTRANSFERASE 22 U/L (12-78); ALBUMIN 3.1 G/DL (3.4-5.0); ALBUMIN/GLOBULIN RATIO 0.8 (1.1-1.5); ALKALINE PHOSPHATASE 95 IU/L (46-116); ANION GAP 4 (8-16); ASPARTATE AMINO TRANSFERASE 19 U/L (10-37); BILIRUBIN,TOTAL 0.3 MG/DL (0.1-1.0); BLOOD UREA NITROGEN 12 MG/DL (7-18); BUN/CREATININE RATIO 15.6 (10.0-20.0); CALCIUM 8.4 MG/DL (8.5-10.1); CHLORIDE 103 MMOL/L (99-107); CREATININE 0.77 MG/DL (0.40-0.90); GLUCOSE 96 MG/DL (70-104); POTASSIUM 3.8 MMOL/L (3.5-5.1); SODIUM 137 MMOL/L (135-145); TOTAL CARBON DIOXIDE 30.4 MMOL/L (24-32); eCRCL 89 ML/MIN; eGFR 84 ML/MIN
[2023-02-09 04:56] LABS: PRO BRAIN NATRIURETIC PEPTIDE 52 PG/ML (0-125)
== END 2023-02-09 05:41 | disposition left against medical advice (07) ==
LOC: ER 04:13
DX: R06.02 Shortness of breath (principal); Z53.21 Procedure and treatment not carried out due to patient leaving prior to being seen by health care provider
CPT/HCPCS: 36415; 80053; 83880; 84484; 85025; 93005; 99281

== ENCOUNTER 2023-05-05 22:50 | Emergency (ER) | payer MEDICAID ==
[~2023-05-05] VITALS: Ht 162.6 cm; Wt 90.1 kg
[2023-05-05 23:01] VITALS: BP 118/81; PULSE 100; RESP 18; TEMP 98.2; O2SAT 100
== END 2023-05-06 01:29 | disposition left against medical advice (07) ==
LOC: ER 22:50
DX: R10.2 Pelvic and perineal pain (principal); Z53.21 Procedure and treatment not carried out due to patient leaving prior to being seen by health care provider
CPT/HCPCS: 99281

== ENCOUNTER 2023-05-09 23:44 | Emergency (ER) | payer MEDICAID ==
[~2023-05-09] VITALS: Ht 162.6 cm; Wt 91.7 kg
[2023-05-09 23:46] VITALS: BP 146/97; PULSE 99; RESP 16; TEMP 98.2; O2SAT 100
[2023-05-10 00:44] LABS: URINE HCG NEGATIVE (NEG)
[2023-05-10 01:01] LABS: BILIRUBIN,URINE NEGATIVE (Neg); CLARITY,URINE CLOUDY (Clear); COLOR,URINE STRAW (Yellow); GLUCOSE, URINE NEGATIVE (Neg); KETONES,URINE NEGATIVE (Neg); LEUKOCYTE ESTERASE ,URINE TRACE (Neg); NITRITES, URINE NEGATIVE (Neg); OCCULT BLOOD,URINE TRACE-INTACT (Neg); PH,URINE 6.5 (4.8-8.0); PROTEIN,URINE NEGATIVE (Neg); UROBILINOGEN,URINE 0.2 E.U/dL (0.2-1.0)
[2023-05-10 01:07] LABS: UA COLLECTION TYPE CLN CATCH MIDSTREAM
[2023-05-10 01:21] LABS: SQUAMOUS EPITHELIAL CELL,UR MANY /LPF (FEW)
[2023-05-10 01:23] LABS: BACTERIA,URINE FEW /HPF (Neg); WBC CLUMPS,URINE FEW /HPF (NEGATIVE)
[2023-05-10 01:24] LABS: TRANSITIONAL EPI CELLS,URINE FEW /HPF
== END 2023-05-10 04:49 | disposition left against medical advice (07) ==
LOC: ER 23:45
DX: M54.50 Low back pain, unspecified (principal); R30.9 Painful micturition, unspecified; Z53.21 Procedure and treatment not carried out due to patient leaving prior to being seen by health care provider
CPT/HCPCS: 81001; 81025; 99281

== ENCOUNTER 2023-05-10 18:34 | Emergency (ER) | payer MEDICAID ==
[~2023-05-10] VITALS: Ht 162.6 cm; Wt 90.7 kg
[2023-05-10 19:09] VITALS: BP 107/79; PULSE 110; RESP 16; TEMP 98.4; O2SAT 98
== END 2023-05-10 20:03 | disposition left against medical advice (07) ==
LOC: ER 18:35
DX: R10.9 Unspecified abdominal pain (principal); Z53.21 Procedure and treatment not carried out due to patient leaving prior to being seen by health care provider
CPT/HCPCS: 99281

== ENCOUNTER 2023-09-03 18:53 | Emergency (ER) | payer MEDICAID ==
[~2023-09-03] VITALS: Ht 162.6 cm; Wt 93.9 kg
[~2023-09-03 18:53] MED LIST changes: -CEPH-585 PO
[2023-09-03 19:30] LABS: BASOPHILS # (AUTO) 0.1 X10'3 (0-0.2); BASOPHILS % (AUTO) 1.1 % (0-1); EOSINOPHILS # (AUTO) 0.2 X10'3 (0-0.9); EOSINOPHILS % (AUTO) 2.2 % (0-6); HEMATOCRIT 41.1 % (35.0-45.0); HEMOGLOBIN 13.6 g/dl (12.0-16.0); LYMPHOCYTES # (AUTO) 3.4 X10'3 (1.1-4.8); LYMPHOCYTES % (AUTO) 35.5 % (21-51); MEAN CORPUSCULAR HEMOGLOBIN 28.3 PG (27.0-31.0); MEAN CORPUSCULAR VOLUME 85.8 FL (78-98); MONOCYTES # (AUTO) 0.9 X10'3 (0-0.9); MONOCYTES % (AUTO) 9.7 % (2-12); NEUTROPHILS % (AUTO) 51.5 % (42-75); PLATELET COUNT 322 X10'3 (140-440); RED CELL DISTRIBUTION WIDTH 12.9 % (11.5-14.5); WHITE BLOOD COUNT 9.6 X10'3 (4.5-11.0)
[2023-09-03 19:38] LABS: ALBUMIN 2.9 G/DL (3.4-5.0); ANION GAP 11 (8-16); BLOOD UREA NITROGEN 12 MG/DL (7-18); BUN/CREATININE RATIO 13.2 (10.0-20.0); CALCIUM 8.4 MG/DL (8.5-10.1); CHLORIDE 104 MMOL/L (99-107); CREATININE 0.91 MG/DL (0.40-0.90); GLUCOSE 98 MG/DL (70-104); POTASSIUM 3.9 MMOL/L (3.5-5.1); PRO BRAIN NATRIURETIC PEPTIDE 50 PG/ML (0-125); SODIUM 139 MMOL/L (135-145); TOTAL CARBON DIOXIDE 24.3 MMOL/L (24-32); eCRCL 72 ML/MIN; eGFR 69 ML/MIN
[2023-09-03 19:52] LABS: BILIRUBIN,URINE NEGATIVE (Neg); CLARITY,URINE CLEAR (Clear); COLOR,URINE STRAW (Yellow); GLUCOSE, URINE NEGATIVE (Neg); KETONES,URINE NEGATIVE (Neg); LEUKOCYTE ESTERASE ,URINE NEGATIVE (Neg); NITRITES, URINE NEGATIVE (Neg); OCCULT BLOOD,URINE NEGATIVE (Neg); PH,URINE 6.5 (4.8-8.0); PROTEIN,URINE NEGATIVE (Neg); UROBILINOGEN,URINE 0.2 E.U/dL (0.2-1.0)
[2023-09-03 19:59] LABS: UA COLLECTION TYPE CLN CATCH MIDSTREAM
[2023-09-03 20:32] VITALS: BP 113/79; PULSE 113; RESP 20; TEMP 98; O2SAT 98
== END 2023-09-03 20:33 | disposition home or self-care (01) ==
LOC: ER 18:53
DX: I47.19 Other supraventricular tachycardia (principal); G89.29 Other chronic pain; M54.9 Dorsalgia, unspecified; F12.90 Cannabis use, unspecified, uncomplicated; Z98.890 Other specified postprocedural states; Z72.89 Other problems related to lifestyle; Z56.0 Unemployment, unspecified; Z88.8 Allergy status to other drugs, medicaments and biological substances; Z79.899 Other long term (current) drug therapy
CPT/HCPCS: 36415; 71045; 80048; 81003; 83880; 84484; 85025; 93005; 99285

== ENCOUNTER 2024-02-05 13:41 | Emergency (ER) | payer MEDICAID ==
[~2024-02-05] VITALS: Ht 165.1 cm; Wt 70.0 kg
[2024-02-05 14:14] LABS: BASOPHILS # (AUTO) 0.1 X10'3 (0-0.2); BASOPHILS % (AUTO) 0.7 % (0-1); EOSINOPHILS # (AUTO) 0.1 X10'3 (0-0.9); EOSINOPHILS % (AUTO) 1.3 % (0-6); HEMATOCRIT 43.2 % (35.0-45.0); HEMOGLOBIN 14.4 g/dl (12.0-16.0); LYMPHOCYTES # (AUTO) 2.4 X10'3 (1.1-4.8); LYMPHOCYTES % (AUTO) 30.2 % (21-51); MEAN CORPUSCULAR HEMOGLOBIN 28.9 PG (27.0-31.0); MEAN CORPUSCULAR HGB CONC 33.3 g/dL (33.0-36.5); MEAN CORPUSCULAR VOLUME 86.9 FL (78-98); MEAN PLATELET VOLUME 8.2 FL (7.4-10.4); MONOCYTES # (AUTO) 0.9 X10'3 (0-0.9); MONOCYTES % (AUTO) 11.4 % (2-12); NEUTROPHILS # (AUTO) 4.4 X10'3 (1.8-7.7); NEUTROPHILS % (AUTO) 56.4 % (42-75); PLATELET COUNT 378 X10'3 (140-440); RED BLOOD COUNT 4.97 X10'6 (4.20-5.60); RED CELL DISTRIBUTION WIDTH 12.4 % (11.5-14.5); WHITE BLOOD COUNT 7.9 X10'3 (4.5-11.0)
[2024-02-05 14:29] LABS: ALANINE AMINOTRANSFERASE 23 U/L (12-78); ALBUMIN 2.8 G/DL (3.4-5.0); ALBUMIN/GLOBULIN RATIO 0.6 (1.1-1.5); ALKALINE PHOSPHATASE 88 IU/L (46-116); ANION GAP 8 (8-16); ASPARTATE AMINO TRANSFERASE 14 U/L (10-37); BILIRUBIN,TOTAL 0.4 MG/DL (0.1-1.0); BLOOD UREA NITROGEN 14 MG/DL (7-18); BUN/CREATININE RATIO 17.3 (10.0-20.0); CALCIUM 8.4 MG/DL (8.5-10.1); CHLORIDE 105 MMOL/L (99-107); CREATININE 0.81 MG/DL (0.40-0.90); GLUCOSE 98 MG/DL (70-104); POTASSIUM 4.1 MMOL/L (3.5-5.1); SODIUM 138 MMOL/L (135-145); TOTAL CARBON DIOXIDE 25.2 MMOL/L (24-32); TOTAL PROTEIN 7.3 G/DL (6.4-8.2); eCRCL 84 ML/MIN; eGFR 79 ML/MIN
[2024-02-05 14:37] LABS: PRO BRAIN NATRIURETIC PEPTIDE < 30 PG/ML (0-125)
[2024-02-05 15:28] VITALS: BP 121/80; PULSE 96; RESP 13; TEMP 98; O2SAT 97
== END 2024-02-05 15:29 | disposition home or self-care (01) ==
LOC: ER 13:41
DX: J39.9 Disease of upper respiratory tract, unspecified (principal); M94.0 Chondrocostal junction syndrome [Tietze]; R00.2 Palpitations; F41.9 Anxiety disorder, unspecified; I47.10 Supraventricular tachycardia, unspecified; G89.29 Other chronic pain; Z88.5 Allergy status to narcotic agent; Z79.899 Other long term (current) drug therapy; Z86.79 Personal history of other diseases of the circulatory system
CPT/HCPCS: 36415; 71045; 80053; 83880; 84484; 85025; 93005; 99285

== ENCOUNTER 2024-05-20 20:26 | Emergency (ER) | payer MEDICAID ==
[~2024-05-20] VITALS: Ht 165.1 cm; Wt 86.3 kg
[2024-05-20 20:28] VITALS: TEMP 98.2
[2024-05-20 20:42] LABS: BASOPHILS # (AUTO) 0.1 X10'3 (0-0.2); BASOPHILS % (AUTO) 0.8 % (0-1); EOSINOPHILS # (AUTO) 0.2 X10'3 (0-0.9); HEMATOCRIT 42.2 % (35.0-45.0); HEMOGLOBIN 14.1 g/dl (12.0-16.0); LYMPHOCYTES # (AUTO) 3.1 X10'3 (1.1-4.8); LYMPHOCYTES % (AUTO) 32.1 % (21-51); MEAN CORPUSCULAR HEMOGLOBIN 28.8 PG (27.0-31.0); MEAN CORPUSCULAR HGB CONC 33.5 g/dL (33.0-36.5); MEAN PLATELET VOLUME 7.7 FL (7.4-10.4); MONOCYTES # (AUTO) 0.9 X10'3 (0-0.9); MONOCYTES % (AUTO) 9.3 % (2-12); NEUTROPHILS # (AUTO) 5.4 X10'3 (1.8-7.7); NEUTROPHILS % (AUTO) 55.8 % (42-75); PLATELET COUNT 360 X10'3 (140-440); RED BLOOD COUNT 4.91 X10'6 (4.20-5.60); RED CELL DISTRIBUTION WIDTH 12.9 % (11.5-14.5); WHITE BLOOD COUNT 9.7 X10'3 (4.5-11.0)
[2024-05-20 20:57] LABS: ALANINE AMINOTRANSFERASE 22 U/L (12-78); ALBUMIN/GLOBULIN RATIO 0.6 (1.1-1.5); ALKALINE PHOSPHATASE 99 IU/L (46-116); ANION GAP 3 (8-16); ASPARTATE AMINO TRANSFERASE 17 U/L (10-37); BILIRUBIN,TOTAL 0.2 MG/DL (0.1-1.0); BLOOD UREA NITROGEN 16 MG/DL (7-18); BUN/CREATININE RATIO 21.9 (10.0-20.0); CALCIUM 8.6 MG/DL (8.5-10.1); CHLORIDE 107 MMOL/L (99-107); CREATININE 0.73 MG/DL (0.40-0.90); GLUCOSE 71 MG/DL (70-104); POTASSIUM 4.2 MMOL/L (3.5-5.1); SODIUM 140 MMOL/L (135-145); TOTAL CARBON DIOXIDE 29.9 MMOL/L (24-32); TOTAL PROTEIN 7.7 G/DL (6.4-8.2); eCRCL 93 ML/MIN; eGFR 89 ML/MIN
[2024-05-20 21:04] LABS: PRO BRAIN NATRIURETIC PEPTIDE 37 PG/ML (0-125)
[2024-05-20] MEDS: normal saline 1000ml 1,000 ML IV ONE (21:43)
[2024-05-20 22:19] LABS: BILIRUBIN,URINE NEGATIVE (Neg); CLARITY,URINE CLEAR (Clear); COLOR,URINE YELLOW (Yellow); GLUCOSE, URINE NEGATIVE (Neg); KETONES,URINE NEGATIVE (Neg); LEUKOCYTE ESTERASE ,URINE NEGATIVE (Neg); NITRITES, URINE NEGATIVE (Neg); OCCULT BLOOD,URINE NEGATIVE (Neg); PROTEIN,URINE NEGATIVE (Neg); UROBILINOGEN,URINE 0.2 E.U/dL (0.2-1.0)
[2024-05-20 22:26] LABS: UA COLLECTION TYPE CLN CATCH MIDSTREAM
[2024-05-20 22:28] LABS: URINE AMPHETAMINE SCREEN POSITIVE (Neg); URINE BARBITUATE SCREEN NEGATIVE (Neg); URINE BENZODIAZEPINES SCREEN NEGATIVE (Neg); URINE CANNABINOID SCREEN NEGATIVE (Neg); URINE COCAINE SCREEN NEGATIVE (Neg); URINE METHADONE SCREEN NEGATIVE (Neg); URINE OPIATE SCREEN NEGATIVE (Neg); URINE PHENCYCLIDINE SCREEN NEGATIVE (Neg)
[2024-05-20 23:06] VITALS: BP 128/80; PULSE 100; RESP 18; O2SAT 96
== END 2024-05-20 23:07 | disposition home or self-care (01) ==
LOC: ER 20:27
DX: I47.10 Supraventricular tachycardia, unspecified (principal); E86.0 Dehydration; Z88.5 Allergy status to narcotic agent; Z86.79 Personal history of other diseases of the circulatory system
CPT/HCPCS: 36415; 71045; 80053; 80305; 81003; 83880; 84484; 85025; 93005; 96360; 99285; J7030

== ENCOUNTER 2024-06-11 17:24 | Emergency (ER) | payer MEDICAID ==
[~2024-06-11] VITALS: Ht 165.1 cm; Wt 99.3 kg
[2024-06-11 18:02] LABS: BASOPHILS # (AUTO) 0.1 X10'3 (0-0.2); BASOPHILS % (AUTO) 1.1 % (0-1); EOSINOPHILS # (AUTO) 0.2 X10'3 (0-0.9); EOSINOPHILS % (AUTO) 1.9 % (0-6); HEMATOCRIT 40.5 % (35.0-45.0); HEMOGLOBIN 13.7 g/dl (12.0-16.0); LYMPHOCYTES # (AUTO) 2.5 X10'3 (1.1-4.8); LYMPHOCYTES % (AUTO) 29.4 % (21-51); MEAN CORPUSCULAR HEMOGLOBIN 28.2 PG (27.0-31.0); MEAN CORPUSCULAR HGB CONC 33.8 g/dL (33.0-36.5); MEAN CORPUSCULAR VOLUME 83.6 FL (78-98); MEAN PLATELET VOLUME 7.7 FL (7.4-10.4); MONOCYTES # (AUTO) 0.9 X10'3 (0-0.9); MONOCYTES % (AUTO) 10.8 % (2-12); NEUTROPHILS # (AUTO) 4.8 X10'3 (1.8-7.7); NEUTROPHILS % (AUTO) 56.8 % (42-75); PLATELET COUNT 342 X10'3 (140-440); RED BLOOD COUNT 4.85 X10'6 (4.20-5.60); RED CELL DISTRIBUTION WIDTH 12.4 % (11.5-14.5); WHITE BLOOD COUNT 8.5 X10'3 (4.5-11.0)
[2024-06-11 18:23] LABS: ALANINE AMINOTRANSFERASE 27 U/L (12-78); ALBUMIN/GLOBULIN RATIO 0.8 (1.1-1.5); ALKALINE PHOSPHATASE 102 IU/L (46-116); ANION GAP 6 (8-16); ASPARTATE AMINO TRANSFERASE 20 U/L (10-37); BILIRUBIN,TOTAL 0.3 MG/DL (0.1-1.0); BLOOD UREA NITROGEN 11 MG/DL (7-18); BUN/CREATININE RATIO 17.2 (10.0-20.0); CALCIUM 8.6 MG/DL (8.5-10.1); CHLORIDE 104 MMOL/L (99-107); CREATININE 0.64 MG/DL (0.40-0.90); GLUCOSE 91 MG/DL (70-104); POTASSIUM 4.2 MMOL/L (3.5-5.1); SODIUM 137 MMOL/L (135-145); TOTAL PROTEIN 6.8 G/DL (6.4-8.2); eCRCL 106 ML/MIN; eGFR > 90 ML/MIN
[2024-06-11 18:29] LABS: PRO BRAIN NATRIURETIC PEPTIDE 113 PG/ML (0-125)
[2024-06-11] MEDS ORDERED: CLINDAMYCIN 600mg IN NS 50ML 50 ML IV ONE (18:50)
[2024-06-11] MEDS: clindamycin 600mg/D5W 50ml 50 ML IV ONE (19:12)
[2024-06-11 19:47] VITALS: BP 133/89; PULSE 75; RESP 15; O2SAT 98
[2024-06-11] MEDS ORDERED: IBUP-862 PO (19:47)
[2024-06-11] MEDS ORDERED: CLIN-97 PO (19:47)
== END 2024-06-11 19:50 | disposition home or self-care (01) ==
LOC: ER 17:25
DX: K04.7 Periapical abscess without sinus (principal); G89.29 Other chronic pain; M54.9 Dorsalgia, unspecified; Z79.899 Other long term (current) drug therapy; F15.90 Other stimulant use, unspecified, uncomplicated; Z98.890 Other specified postprocedural states; Z56.0 Unemployment, unspecified; Z72.89 Other problems related to lifestyle; Z88.5 Allergy status to narcotic agent
CPT/HCPCS: 36415; 71045; 80053; 83880; 84484; 85025; 93005; 96365; 99285; J3490